=== PATIENT | female | born 1985 | race Caucasian/White ===

== ENCOUNTER 2018-06-14 19:48 | Emergency (ER) | payer MEDICARE, MEDICAID | END 2018-06-14 20:20 | disposition home or self-care (01) | LOC: ERS 19:48 | DX: J01.90 Acute sinusitis, unspecified (principal); E11.9 Type 2 diabetes mellitus without complications; F41.9 Anxiety disorder, unspecified; F32.9 Major depressive disorder, single episode, unspecified; F17.210 Nicotine dependence, cigarettes, uncomplicated | CPT/HCPCS: 99283 ==

== ENCOUNTER 2019-12-29 13:16 | Emergency (ER) | payer MEDICARE, MEDICAID | END 2019-12-29 14:00 | disposition home or self-care (01) | LOC: ERS 13:16 | DX: K02.9 Dental caries, unspecified (principal); E11.9 Type 2 diabetes mellitus without complications; F41.9 Anxiety disorder, unspecified; F32.9 Major depressive disorder, single episode, unspecified; F17.210 Nicotine dependence, cigarettes, uncomplicated | CPT/HCPCS: 99283 ==

== ENCOUNTER 2020-08-01 00:02 | Emergency (ER) | payer MEDICARE, MEDICAID | END 2020-08-01 01:39 | disposition home or self-care (01) | LOC: ERS 00:02 | DX: T19.2XXA Foreign body in vulva and vagina, initial encounter (principal); E11.9 Type 2 diabetes mellitus without complications; F17.210 Nicotine dependence, cigarettes, uncomplicated; Z79.84 Long term (current) use of oral hypoglycemic drugs; Z79.899 Other long term (current) drug therapy | CPT/HCPCS: 99283 ==

== ENCOUNTER 2020-11-11 20:18 | Emergency (ER) | payer MEDICARE, MEDICAID | END 2020-11-11 21:16 | disposition home or self-care (01) | LOC: ERS 20:18 | DX: K02.9 Dental caries, unspecified (principal); E11.9 Type 2 diabetes mellitus without complications; F17.210 Nicotine dependence, cigarettes, uncomplicated; Z79.899 Other long term (current) drug therapy | CPT/HCPCS: 99283 ==